=== PATIENT | female | born 1960 | race Caucasian/White ===

== ENCOUNTER 2018-09-28 08:00 | Outpatient (CLI) | payer BC | END 2018-09-28 23:59 | disposition home or self-care (01) | LOC: D.MAMMO 08:00 | PROVIDERS: ATTEND Family Medicine | DX: Z12.31 Encounter for screening mammogram for malignant neoplasm of breast (principal) ==

== ENCOUNTER 2018-11-02 09:00 | Outpatient (CLI) | payer BC | END 2018-11-02 10:00 | disposition home or self-care (01) | LOC: D.MAMMO 09:00 | PROVIDERS: ATTEND Family Medicine | DX: R92.8 Other abnormal and inconclusive findings on diagnostic imaging of breast (principal) ==

== ENCOUNTER → 2018-11-08 12:26 | Outpatient (CLI) | payer BC | END | disposition home or self-care (01) | LOC: D.US 12:26 | PROVIDERS: ATTEND Family Medicine | DX: R92.8 Other abnormal and inconclusive findings on diagnostic imaging of breast (principal) ==

== ENCOUNTER → 2019-02-28 09:48 | Outpatient (CLI) | payer BC ==
--- NOTE | ~2019-02-28 | EC ---
PATIENT:ERNESTINA EMERY DATE OF SERVICE: 02/28/19 SEX: F MEDICAL RECORD: [id number] DATE OF : [birth year] LOCATION:D[facility] AGE OF PATIENT: 58 ADMISSION DATE: 02/28/19 REFERRING PHYSICIAN: INTERPRETING PHYSICIAN: ROWDY RODRIGUEZ MD ECHOCARDIOGRAM REPORT ECHO CHARGES 4 ECHO COMPLETE Date: 02/28/19 CLINICAL DIAGNOSIS: BREAST CANCER - PRE CHEMOTHERAPY ECHOCARDIOGRAPHIC MEASUREMENTS (adult normal given) AC root (d.<3.7cm) 2.9 cm LV Septum d (<1.2 cm> 0.8 cm Valve Excursion 2.1 cm LV Septum (systole) 1.5 cm Left Atria (s.<4.0cm> 3.2 cm LVPW d(<1.2cm) 1.0 cm RV (d.<2.3cm) 2.7 cm LVPW (sytole) 1.7 cm LV diastole(<5.6CM) 4.9 cm MV E-F(>70mm/sec) cm LV systole 2.8 cm LVOT Diameter 1.7 cm MV exc.(>10mm) cm Est.ejection fraction (50-75%) % DOPPLER: LVIT cm/sec A 44.0 cm/sec E 83.0 cm/sec LA cm/sec RVSP 34.0 mmHg LVOT 108 cm/sec AOP1/2T m/s Asc. Ao 132 cm/sec RVOT 51.0 cm/sec RA cm/sec PA 76.0 cm/sec AV Gradient Peak 7.0 mmHg AV Mean 3.8 mmHg AV Area 1.6 cm MV Gradient Peak 3.6 mmHg MV Mean 1.0 mmHg MV Area cm COMMENTS: Compressor Mechanic Bus: Loni LUQUE Managed Care Manager: 1 Dr. Rodriguez TAPE# PACS Pericardial Effusion N DATE OF SERVICE: 02/28/2019 Echocardiogram FINDINGS: 1. Left ventricular chamber size is within normal limits. Left ventricular systolic function is normal. Overall ejection fraction estimated at 60%. 2. Left atrium is within normal limits at 3.2 cm. Right atrium and right ventricular chamber sizes are mildly dilated. 3. Valvular structures have normal structure and motion. ECHOCARDIOGRAM REPORT [id number] ERNESTINA EMERY 4. Doppler interrogation reveals trace aortic insufficiency, trace mitral regurgitation, no other valvular insufficiency or stenosis. Pulmonary systolic pressure estimated at 34 mmHg. 5. No evidence of pericardial effusion or left ventricular thrombus. TRANSINT:[id number] Voice Confirmation ID: [id number] DOCUMENT ID: [id number] RWODY RODRIGUEZ MD CC: [id number] DICTATION DATE: 03/01/19 1257 SENIOR JAVA DEVELOPER: 03/01/19 1721 DEP CLI 02/28/19 [facility] [address] [id number]
== END | disposition home or self-care (01) ==
LOC: D.ECHO 09:48
PROVIDERS: ATTEND Internal Medicine Hematology & Oncology
DX: C50.111 Malignant neoplasm of central portion of right female breast (principal)

== ENCOUNTER → 2019-08-30 09:06 | Outpatient (CLI) | payer BC | END | disposition home or self-care (01) | LOC: D.NM 09:06 | PROVIDERS: ATTEND Internal Medicine Hematology & Oncology | DX: C44.591 Other specified malignant neoplasm of skin of breast (principal); C50.111 Malignant neoplasm of central portion of right female breast; Z51.11 Encounter for antineoplastic chemotherapy; D70.9 Neutropenia, unspecified; K59.00 Constipation, unspecified; G89.3 Neoplasm related pain (acute) (chronic); R53.83 Other fatigue; D70.1 Agranulocytosis secondary to cancer chemotherapy; J02.9 Acute pharyngitis, unspecified ==

== ENCOUNTER → 2019-09-06 08:41 | Outpatient (CLI) | payer BC | END | disposition home or self-care (01) | LOC: D.MRI 08:41 | PROVIDERS: ATTEND Internal Medicine Hematology & Oncology | DX: C50.111 Malignant neoplasm of central portion of right female breast (principal); C44.591 Other specified malignant neoplasm of skin of breast; D70.9 Neutropenia, unspecified; Z51.11 Encounter for antineoplastic chemotherapy; K59.00 Constipation, unspecified; G89.3 Neoplasm related pain (acute) (chronic); R53.83 Other fatigue; D70.1 Agranulocytosis secondary to cancer chemotherapy; J02.9 Acute pharyngitis, unspecified; M85.80 Other specified disorders of bone density and structure, unspecified site ==